=== PATIENT | female | born 1955 | race Two or more races ===

== ENCOUNTER 2021-06-24 16:24 | Emergency (ER) | payer OTHER ==
[~2021-06-24] VITALS: Ht 160 cm; Wt 94.3 kg
[2021-06-24] MEDS ORDERED: GLUMETZA1000 MG PO (16:33)
[2021-06-24] MEDS ORDERED: CHILDREN'S ASPI81 MG PO (16:33)
[2021-06-24] MEDS ORDERED: ZESTRIL10 M1 PO (16:33)
[2021-06-24] MEDS ORDERED: SYNTHROID75 MCG PO (16:33)
[2021-06-24] MEDS ORDERED: NORFLEX100MG PO (18:29)
== END 2021-06-24 18:36 | disposition home or self-care (01) ==
LOC: ER 16:24
DX: M62.830 Muscle spasm of back (principal); R07.89 Other chest pain

== ENCOUNTER 2022-09-26 12:57 | Emergency (ER) | payer OTHER ==
[~2022-09-26] VITALS: Ht 160 cm; Wt 98.9 kg
[~2022-09-26 12:57] MED LIST: CHILDREN'S ASPI81 MG PO; GLUMETZA1000 MG PO; NORFLEX100MG PO; SYNTHROID75 MCG PO; ZESTRIL10 M1 PO
[2022-09-26] MEDS ORDERED: ATORVASTATIN CA20 MG (13:42)
== END 2022-09-26 15:11 | disposition home or self-care (01) ==
LOC: ER 12:57
DX: S91.341A Puncture wound with foreign body, right foot, initial encounter (principal); W25.XXXA Contact with sharp glass, initial encounter; Y93.9 Activity, unspecified; Y92.89 Other specified places as the place of occurrence of the external cause; E03.9 Hypothyroidism, unspecified; E11.9 Type 2 diabetes mellitus without complications; Z79.84 Long term (current) use of oral hypoglycemic drugs; M62.830 Muscle spasm of back